=== PATIENT | male | born 1995 | race African-American/Black ===

== ENCOUNTER 2025-02-05 11:40 | Emergency (ER) | payer BC ==
[~2025-02-05] VITALS: Ht 180.3 cm; Wt 95.3 kg
[2025-02-05 12:30] LABS: PLATELET COUNT (AUTO) 443 K/uL (150-450); RED BLOOD CELL COUNT(AUTO) 4.83 MIL/uL (4.5-6.0); RED CELL DISTRIBUTION WIDTH 12.5 % (11.5-15.0); WHITE BLOOD COUNT (AUTO) 15.9 K/uL (4.3-11.0)
[2025-02-05] MEDS ORDERED: ONDANSETRON HCL/PF 4 MG/2 ML VIAL ONE ×2 (12:35→12:45)
[2025-02-05 12:38] LABS: CALCIUM, SERUM 9.4 mg/dL (8.5-10.1); CREATININE 0.8 mg/dL (0.6-1.3); SODIUM SERUM 136.0 mmol/L (136-145); UREA NITROGEN, BLOOD 15.0 mg/dL (7-18)
[2025-02-05 12:43] LABS: ASPARTATE AMINOTRANSFERASE 17.0 U/L (15-37); TOTAL PROTEIN, SERUM 8.8 g/dL (6.4-8.2)
[2025-02-05] MEDS: IV LR 1000 ML 1,000 ML IV ONE (12:46)
[2025-02-05] MEDS: ONDANSETRON HCL/PF 4 MG/2 ML VIAL IVP ONE (12:46)
[2025-02-05] MEDS ORDERED: ONDA4TAB11 PO (12:57)
[2025-02-05 14:12] VITALS: BP 148/81; TEMP 97.9; O2SAT 100
== END 2025-02-05 14:13 | disposition home or self-care (01) ==
LOC: ER 12:11
DX: R11.2 Nausea with vomiting, unspecified (principal); R19.7 Diarrhea, unspecified
CPT/HCPCS: 99283; 96374; 96361; 85025; 80048; 83690; 80076; 36415; J2405 ×2; J7120